=== PATIENT | male | born 1945 | race Caucasian/White ===

== ENCOUNTER → 2016-09-29 | Outpatient (CLI) | payer MEDICARE, BC ==
[~2016-09-29] MED LIST: ACETAMINOPHEN 325 MG TABLET PO PRN; ASCO500T9 PO; BISO5TAB13 PO; CYAN1TAB9 PO; FERR-70 PO; FURO20TA4 PO; IBUP-1724 PO; LACT1CAP73; LOSA50TA52 PO; MORPHINE SULFATE 10 MG SYRINGE IV PRN; MULT-1198; NITR0.4T38 SL; OMEP-122 PO; SPIR50TA PO; [UNRECOGNIZED DRUG - CODE]
== END ==
LOC: IMA.BED 08:00
PROVIDERS: ATTEND Radiology Diagnostic Radiology
DX: Z53.8 Procedure and treatment not carried out for other reasons (principal)

== ENCOUNTER → 2016-12-01 | Outpatient (CLI) | payer MEDICARE, BC ==
[~2016-12-01] MED LIST changes: -ACETAMINOPHEN 325 MG TABLET PO PRN; -MORPHINE SULFATE 10 MG SYRINGE IV PRN
[2016-12-06 01:25] LABS: LDL CHOLESTEROL,CALCULATED 133.2 (66-159); RISK FACTOR 3.6 RATIO (0-5.0); VLDL CHOLESTEROL 13.8 MG/DL (0-28)
== END ==
LOC: LAB 08:08
DX: E78.00 Pure hypercholesterolemia, unspecified (principal); Z12.5 Encounter for screening for malignant neoplasm of prostate
CPT/HCPCS: 36415; 80061; G0103

== ENCOUNTER → 2016-12-12 | Outpatient (CLI) | payer MEDICARE, BC ==
[~2016-12-12] MED LIST changes: +GADOXETATE DISODIUM 2.5 MMOL/10 ML IV ONE; +NORMAL SALINE 50 ML IV ONE; +SALINE FLUSH 10ml SYRINGE ONE
--- NOTE | 2016-12-12 13:56 | DI ---
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 TECHNIQUE: Multiple contiguous axial, and coronal MRI images and sequences were obtained of the abdomen with and without contrast. The patient was administered 10 mL of EOVIST. FINDINGS: Numerous T1 hypointense and T2 hyperintense hepatic metastases are demonstrated within the right and left hepatic lobes which are stable to slightly increased in size from the previous study. The dominant mass within the right hepatic lobe measures 5.7 cm compared to 4.7 cm on the prior study in September 2016. The metastases within the left hepatic lobe measures 1.8 cm compared to 1.7 cm previously. The metastases within the central right hepatic lobe measures 2.3 cm compared to 1.9 cm previously. No definite new hepatic metastases are identified. The lesion/mass within the pancreatic tail is again noted and does not appear significantly changed in size currently measuring approximately 4.1 x 2.9 cm compared to 4.0 x 3.2 cm. No significant biliary ductal dilatation. The remaining abdominal viscera is stable. Impression: 1. Stable to slight increase in size of numerous hepatic metastases. No definite new hepatic metastases are identified. 2. Stable pancreatic mass. .
== END ==
LOC: IMA 08:27
PROVIDERS: ATTEND Internal Medicine Hematology & Oncology
DX: C25.2 Malignant neoplasm of tail of pancreas (principal); C78.7 Secondary malignant neoplasm of liver and intrahepatic bile duct
CPT/HCPCS: 74183; A9581; J7050